=== PATIENT | male | born 1975 | race American Indian/Alaskan Native ===

== ENCOUNTER 2019-09-15 01:22 | Emergency (ER) | payer MEDICAID ==
[2019-09-15] MEDS ORDERED: cloNIDine 0.1 MG TAB PO ONE (02:07)
[2019-09-15] MEDS ORDERED: SULFAMETHOXAZOLE/TRIMETHOPRIM 800/160MG DS TAB PO ONE (02:15)
[2019-09-15] MEDS ORDERED: IBUPROFEN 800 MG TAB PO ONE (02:15)
--- NOTE | 2019-09-15 02:16 | Emergency Department Report ---
HPI - General Chief Complaint: Extremity Injury, Upper Time Seen by Provider: 09/15/19 02:04 - HPI HPI: 44-year-old male presents to the emergency department with complaint of pain and swelling to the right thumb that has been going on for the past 4 days. He denies any trauma to the area. He is right-hand dominant. He denies any fever. He has not taken anything for his symptoms prior to presentation. Patient presents with elevated blood pressure but denies any history of hypertension. He does not follow with a primary care physician. ED Past Medical Hx - Past Medical History Previous Medical History?: No - Surgical History Past Surgical History?: No - Social History Smoking Status: Current Every Day Smoker Substance Use Type: None - Medications Home Medications: Home Medications Medication Instructions Recorded Confirmed Last Taken Type Sulfamethoxazole/Trimethoprim 1 each PO BID #12 tablet 09/15/19 Unknown Rx [Bactrim DS TAB] amLODIPine 5 mg PO DAILY #30 tab 09/15/19 Unknown Rx ED Review of Systems ROS: Stated complaint: RIGHT THUMB SWELLING Other details as noted in HPI Comment: All other systems reviewed and negative Constitutional: denies: chills Musculoskeletal: joint swelling (Right thumb), arthralgia (Right thumb pain) Skin: other (Right thumb infection) Neurological: denies: numbness, paresthesias Physical Exam - Physical Exam Vital Signs: Vital Signs 09/15/19 09/15/19 09/15/19 01:23 01:27 01:32 Temperature 98.6 F Pulse Rate 91 H Respiratory 18 Rate Blood Pressure 220/110 220/151 Blood Pressure 220/110 [Right] O2 Sat by Pulse 97 Oximetry Physical Exam: GENERAL: The patient is well-developed well-nourished. HENT: Normocephalic. Atraumatic. Patient has moist mucous membranes. EYES: Extraocular motions are intact. NECK: Supple. Trachea is midline. CHEST/LUNGS: Clear to auscultation. There is no respiratory distress noted. HEART/CARDIOVASCULAR: Regular. There is no tachycardia. ABDOMEN: Abdomen is soft, nontender. Patient has normal bowel sounds. SKIN: There is a paronychia of the right thumb as there is some swelling, mild erythema and visible pus under the skin at the nail margin. NEURO: The patient is awake, alert, and oriented. The patient is cooperative. The patient has no focal neurologic deficits. Normal speech. MUSCULOSKELETAL: There is tenderness to palpation of the right distal thumb where the patient has a paronychia. There is no limitation range of motion. ED Course Vital Signs 09/15/19 09/15/19 09/15/19 01:23 01:27 01:32 Temperature 98.6 F Pulse Rate 91 H Respiratory 18 Rate Blood Pressure 220/110 220/151 Blood Pressure 220/110 [Right] O2 Sat by Pulse 97 Oximetry - I & D Right Finger Type of Procedure: Simple Site: Right thumb paronychia Blade Size: 11 I & D Procedure: betadine prep, sterile drapes applied, sterile dressing applied Progress: The area was cleaned with an iodine/Betadine solution. A small incision was made with an 11 blade scalpel. There was a release of about 1.5 mL's of pus. There is no room for iodoform packing. Covered with sterile gauze. No obvious complications from this procedure. ED Medical Decision Making - Medical Decision Making Patient presents with a 4-day history of pain and swelling at the right thumb which is a paronychia. An incision and drainage was done with a release of about 1.5 cc of pus. As part of the patient's triage she was found to have a very high blood pressure. He denies any history of hypertension but also does not follow with any primary care physicians. He was given a dose of Catapres and it came down to a systolic of 188. Patient will be discharged home with antibiotics and he has been started on amlodipine/Norvasc. We also discussed smoking cessation. We discussed staying away from foods that are high in salt and caffeinated products. He will keep a blood pressure log. He will return to the emergency department with any worsening of his symptoms or any acute distress. Critical Care Time: No Critical care attestation.: If time is entered above; I have spent that time in minutes in the direct care of this critically ill patient, excluding procedure time. ED Disposition Clinical Impression: Paronychia of thumb, right, Asymptomatic hypertensive urgency Disposition: - TO HOME OR SELFCARE Is pt being admited?: No Condition: Stable Instructions: How to Stop Smoking (ED), Paronychia (ED), Hypertension (ED) Additional Instructions: Please follow-up with a primary care physician. Return to the emergency with any worsening of your symptoms or any acute distress. Take the antibiotics as prescribed. I am starting you on a blood pressure medication called Norvasc/amlodipine. This medication is taken once per day, usually in the morning. Try and quit smoking. Stay away from foods that are high in salt and caffeinated products. Keep a blood pressure log. Prescriptions: amLODIPine 5 mg PO DAILY #30 tab Sulfamethoxazole/Trimethoprim [Bactrim DS TAB] 1 each PO BID #12 tablet Referrals: PRIMARY CAREMD [Primary Care Provider] - 3-5 Days NEYMAR KAISER MD [Staff Physician] - 3-5 Days CORRINA RASHID MD [Staff Physician] - 3-5 Days [facility] [Provider Group] - 3-5 Days Time of Disposition: 03:33
[2019-09-15 03:34] VITALS: BP 188/122
== END 2019-09-15 03:50 | disposition home or self-care (01) ==
LOC: ED 01:22
DX: L03.011 Cellulitis of right finger (principal); I16.0 Hypertensive urgency; F17.200 Nicotine dependence, unspecified, uncomplicated; Z79.899 Other long term (current) drug therapy
CPT/HCPCS: 99282